=== PATIENT | male | born 2000 | race African-American/Black ===

== ENCOUNTER 2022-07-07 19:31 | Emergency (ER) | payer OTHER ==
[~2022-07-07] VITALS: Ht 170 cm; Wt 55.0 kg
[2022-07-07] MEDS ORDERED: OXYM15SP42 NSEACH (20:01)
--- NOTE | 2022-07-07 20:01 | ED General ---
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 Patient states over the past 2 days he has been having significant runny nose, nasal congestion worse when he lies down. He states this became worse today before his track meet. 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 States after his long distance run he sat down and started feeling lightheaded when he stood up. Denies syncope or loss of consciousness. Patient went to the net trainer laid down and noticed improvement. He states he did have some coughing after his run with increase nasal congestion. Denied of any chest pain, shortness of breath, headache, dizziness before his episode. Described as more as lightheadedness when he was getting up from a seated position. Patient on arrival has no current complaints beside some nasal congestion. Patient denies of any focal neural deficits, fever, chills. Up-to-date on his COVID and influenza vaccine. No family history of sudden cardiac . Denies syncope, fatigue, chest pain with exertion, history of syncope, nausea, vomiting, diarrhea, shortness of b reath. , Allergies and Home Medications Allergies Coded Allergies: No Known Drug Allergies (Unverified , 07/07/22) Patient Home Medication List Home Medication List Reviewed: Yes Oxymetazoline HCl (Vicks Sinex) 0.05 % [place], 2 SPRAYS NSEACH BID Prescribed by: YANCI GALAN on 07/07/222000 Review of Systems Review of Systems Constitutional: No chills, No diaphoresis, No malaise, No weakness EENTM: nose congestion; No ear discharge, No ear pain Respiratory: No cough, No short of breath Cardiovascular: No chest pain Gastrointestinal: No abdominal pain, No diarrhea, No nausea Genitourinary: No decreased output, No discharge Musculoskeletal: No muscle weakness, No neck pain Skin: No change in color All Other Systems Reviewed Negative Unless Noted: Yes Physical Exam Vital Signs Vital Signs - First Documented 07/07/22 19:41 Temp 36.7 Pulse 83 Resp 16 B/P (MAP) 128/82 (97) Pulse Ox 100 O2 Delivery Room Air Capillary Refill : Height, Weight, BMI Height: '" Weight: lbs. oz. kg; BMI Method: General Appearance: No Apparent Distress, WD/WN Eyes: Bilateral Eye Normal Inspection, Bilateral Eye PERRL, Bilateral Eye EOMI HEENT: PERRL/EOMI, TMs Normal, Pharynx Normal, Other (Nasal callosal edematous with some rhinorrhea. Postnasal drip.) Neck: Full Range of Motion, Normal Inspection, Non Tender, Supple Respiratory: Chest Non Tender, Lungs Clear, Normal Breath Sounds, No Accessory Muscle Use, No Respiratory Distress Cardiovascular: Regular Rate, Rhythm, No Edema, No Gallop, No JVD, No Murmur Gastrointestinal: Normal Bowel Sounds, No Organomegaly, No Pulsatile Mass, Non Tender, Soft Genital/Rectal: Normal Genital Exam, Normal Rectal Exam Back: Normal Inspection Neurologic/Psychiatric: Alert, Oriented x3, No Motor/Sensory Deficits, Normal Mood/Affect, oil well service operator helper II-XII Norm as Tested Skin: Normal Color, Warm/Dry Progress/Results/Core Measures Suspected Sepsis SIRS Temperature: Pulse: Respiratory Rate: Blood Pressure / Mean: Results/Orders Vital Signs/I&O 07/07/22 07/07/22 07/07/22 19:41 19:41 20:07 Temp 36.7 36.7 Pulse 83 78 Resp 16 16 B/P (MAP) 128/82 (97) 128/82 Pulse Ox 100 100 O2 Delivery Room Air Room Air Room Air Capillary Refill : Departure Communication (PCP) Patient on arrival currently asymptomatic. Patient did not have a syncopal episode. Patient felt lightheaded when stood after running a race. He states he has been having nasal congestion over the past 2 days. Typically uses [facility] but does not have any medication at this time. No known medical problems. On exam no murmur. Denies of any chest pain, cough or shortness of breath. No family history of sudden cardiac . Vital signs stable. Does not appear toxic. Patient states he felt better when he laid down after running and drank fluids. Likely had a vasovagal response when he stand. Likely overexerted himself during his track meet. Patient does have moist mucous membranes. Patient has been urinating. Does not appear to be in rhabdo. He did have some cramps but that improved after the run. Neuro exam unremarkable. No murmur. Discussed EKG, CBC and BMP. He states he feels better and will follow-up with his team provider. I recommend taking the next 2 or 3 days off and reevaluation before returning. Patient requesting prescription of nasal spray. Return precautions were discussed. He agrees with plan of action Impression Primary Impression: URI (upper respiratory infection) Additional Impression: Lightheadedness Disposition: 01 HOME, SELF-CARE Condition: Stable Departure-Patient Inst. Decision time for Depature: 19:56 Referrals: [facility] [place] NO,LOCAL PHYSICIAN (PCP) Primary Care Physician Patient Instructions: Cough, Runny Nose, and the Common Cold Scripts Oxymetazoline HCl (Vicks Sinex) 0.05 % [place] 2 SPRAYS NSEACH BID, #1 EA Prov: IVELISSE CONTEH 07/07/22 IVELISSE CONTEH Jul 07, 2022 20:01
[2022-07-07 20:07] VITALS: BP 128/82
== END 2022-07-07 20:07 | disposition home or self-care (01) ==
LOC: ER 19:35
DX: J06.9 Acute upper respiratory infection, unspecified (principal); R42 Dizziness and giddiness; Z28.310 Unvaccinated for COVID-19
CPT/HCPCS: 99281